=== PATIENT | female | born 1960 | race Asian ===

== ENCOUNTER 2023-01-01 11:25 | Inpatient (IN) | payer OTHER ==
[~2023-01-01] VITALS: Ht 157.5 cm; Wt 66.7 kg
[2023-01-01] MEDS ORDERED: VANCOMYCIN 1 GM in IV D5W 250 ML IV ONE (12:00)
[2023-01-01] MEDS ORDERED: CEFEPIME 1 GM in IV D5W 50 ML IV ONE (12:00)
[2023-01-01 12:02] LABS: BASOPHILS % (AUTO) 0.4 % (0.0-2.0); HEMATOCRIT 34 % (33-45); HEMOGLOBIN 11.1 g/dL (11.5-14.8); LYMPHOCYTES # (AUTO) 0.5 K/uL (0.8-4.8); LYMPHOCYTES % (AUTO) 4.7 % (20.0-44.0); MEAN CORPUSCULAR HGB CONC 33 g/dl (31.0-36.0); MEAN CORPUSCULAR VOLUME 96 fL (82-100); MONOCYTES # (AUTO) 0.4 K/uL (0.1-1.30); MONOCYTES % (AUTO) 4.3 % (2.0-12.0); NEUTROPHILS # (AUTO) 8.9 K/uL (1.8-8.9); NEUTROPHILS % (AUTO) 90.6 % (43.0-81.0); PLATELET COUNT (AUTO) 124 K/uL (150-450); RED BLOOD CELL COUNT(AUTO) 3.57 MIL/uL (4.0-5.2); WHITE BLOOD COUNT (AUTO) 9.8 K/uL (4.3-11.0)
[2023-01-01] MEDS ORDERED: VANCOMYCIN 1 GM /D5W 250 ML PB IV ONE (12:11)
--- NOTE | 2023-01-01 12:17 | NUR ---
PT COMES FROM DIALYSIS CENTER NOT COMPLETED 2/3 HOURS DONE. A/OX 4 BREATHING IS EVEN AND UNLABORED ON 2L NC. C/O: FEVER 103.0 AND CHILLS. DID FEEL LITTLE SICK AND WARM THE NIGHT BEFORE DIALYSIS. ON ARRIVAL PT PRESENTED WITH TACHYCARDIA 125 BPM AND FEVER OF 103.0 F NO ALOC FOUND ON ASSESSMENT. PT CONNECTED TO BEDSIDE MONITOR BP IS WNL. PT PROVEDIED BLANKETS. ABX STARTED. IN BED SIDE RAILS UP BED LOCKED IN LOWEST POSTITION,
[2023-01-01 12:47] LABS: CARBON DIOXIDE 24 mmol/L (21-32); CHLORIDE 98 mmol/L (98-107); CREATININE 4.2 mg/dL (0.6-1.3); GLUCOSE 161 mg/dL (74-106); POTASSIUM 3.3 mmol/L (3.5-5.1); SODIUM SERUM 136 mmol/L (136-145); UREA NITROGEN, BLOOD 19 mg/dL (7-18)
[2023-01-01 12:53] LABS: ALANINE AMINOTRANSFERASE 23 U/L (12-78); ALBUMIN 3.2 g/dL (3.4-5.0); ALKALINE PHOSPHATASE 82 U/L (46-116); ASPARTATE AMINOTRANSFERASE 18 U/L (15-37); BILIRUBIN,DIRECT 0.2 mg/dL (0.0-0.2); BILIRUBIN,TOTAL 0.5 mg/dL (0.2-1.0); TOTAL PROTEIN, SERUM 8.1 g/dL (6.4-8.2)
[2023-01-01] MEDS ORDERED: IV NS 0.9% 1,000 ML IV ONE (13:00)
--- NOTE | 2023-01-01 13:35 | NUR ---
112-1 PER NURSING SUP
[2023-01-01] MEDS ORDERED: ASPI-1420 PO (13:50)
[2023-01-01] MEDS ORDERED: METO-357 PO (13:50)
[2023-01-01] MEDS ORDERED: VIT1TABL46 PO (13:50)
[2023-01-01] MEDS ORDERED: INSU100V7 SQ (13:50)
[2023-01-01] MEDS ORDERED: CHOL100043 PO (13:50)
[2023-01-01] MEDS ORDERED: TRAZ-257 PO (13:50)
[2023-01-01] MEDS ORDERED: ATOR40TA PO (13:50)
[2023-01-01] MEDS ORDERED: NIFE-35 PO (13:50)
[2023-01-01] MEDS ORDERED: MAG HYDROX/AL HYDROX/SIMETH 30 ML UDC PO PRN (14:00)
[2023-01-01] MEDS ORDERED: ACETAMINOPHEN 325 MG TABLET PO ONE (14:00)
[2023-01-01] MEDS ORDERED: hydrALAZINE HCL IV 20 MG VIAL IV PRN (14:00)
[2023-01-01] MEDS ORDERED: ONDANSETRON HCL/PF 4 MG/2 ML VIAL IVP PRN (14:00)
[2023-01-01] MEDS ORDERED: DEXTROSE 50%-WATER 50 ML DISP.SYRIN IV PRN (14:00)
--- NOTE | 2023-01-01 14:21 | NUR ---
HANDOFF REPORT GIVEN TO NIKA BOATENG FOR INPATIENT SERVICES.
[2023-01-01] MEDS ORDERED: VANCOMYCIN POST DIALYSIS 500MG IV PRN ×2 (14:30)
--- NOTE | 2023-01-01 14:35 | NUR ---
PT TRASNFERED WITH ACLS PROTCAL. PT REMAINED STABLE THROUGHT TRANSPORT. PT WAS CONNECTED TO [employer] HELPER THROUGHT TRANSPORT.
--- NOTE | 2023-01-01 14:36 | NUR ---
NS DRIP STARTED AT 1300 END TIME 1400 1 L
--- NOTE | 2023-01-01 14:45 | NUR ---
RN NOTE PATIENT WA ADMITTED FROM THE ER . PATIENT IS ALERT , ORIENTED TIMES 3 , C/O LOW BACK PAIN , NAUSEA AND VOMITING, GENERALIZED WEAKNESS ,PATIENT HAS RU CHEST HD CATH , LEFT FOREARM IV ACCESS 18 G . PATIENT IS ON 2 L OF OXYGEN VIA N/C , BREATHING NONLABORED , O2 SAT 98 %STATED THAT UNABLE TO AMBULATE . SKIN IS INTACT .BED IS AT LOWEST POSITION, CALL LIGHT WITHIN REACH , BED SIDE RAILS ARE UP , WILL CONTINUE TO MONITOR
[2023-01-01 15:18] VITALS: BP 127/78; TEMP 98.8
[2023-01-01] MEDS: CEFEPIME 1 GM in IV D5W 50 ML IV SCH (15:52)
[2023-01-01 16:00] VITALS: BP 125/84; TEMP 98.9
[2023-01-01] MEDS: MORPHINE SULFATE INJ 2 MG/ML DISP.SYRIN IV PRN (16:12)
[2023-01-01] MEDS: BLOOD SUGAR DIAGNOSTIC 1 EACH STRIP VI SCH ×2 (17:25→21:47)
[2023-01-01] MEDS: INSULIN REGULAR, HUMAN 100 UNIT/ML 3 ML VIAL SQ PRN (17:26)
--- NOTE | 2023-01-01 18:39 | NUR ---
TELLER VAULT CLOSING NOTE PATIENT IS ALERT , ORIENTED TIMES 3 , PATIENT HAS RU CHEST HD CATH , LEFT FOREARM IV ACCESS 18 G . PATIENT IS ON 2 L OF OXYGEN VIA N/C , BREATHING NONLABORED , O2 SAT 98 %STATED THAT UNABLE TO AMBULATE . SKIN IS INTACT, REFUSED TO EAT DINNER DUE TO STATING THAT LOST TASTE OF FOOD .BED IS AT LOWEST POSITION, CALL LIGHT WITHIN REACH , BED SIDE RAILS ARE UP , WILL CONTINUE ENDORSE TO TREATING PLANT OPERATOR NURSE.
--- NOTE | 2023-01-01 19:50 | NUR ---
QUANTITATIVE ANALYST DEVELOPER OPENING NOTES RECEIVED PATIENT IN BED, AWAKE, ALERT/ORIENTED X 4 AND VERBALLY RESPONSIVE. ON O2 AT 2L/MIN VIA N/C AND PT TOLERATED WELL. PT HAS RIGHT UPPER CHEST HD CATH AND COVERED WITH DRY DRESSING. IV ACCESS ON LAC#20G INTACT AND PATENT. NO S/S OF INFILTRATIONS. NO C/O PAIN OR DISCOMFORT. NO ACUTE DISTRESS. ALL SAFETY MEASURES IN PLACE. BED IN LOWEST POSITION AND LOCKED. PLACE CALL LIGHT WITHIN REACH. SIDE RAILS ARE UP X2, WILL CONTINUE TO MONITOR.
[2023-01-01 20:00] VITALS: BP 106/51; TEMP 99.2
[2023-01-01] MEDS: HEPARIN SODIUM, PORCINE 5000 UNITS/1 ML VIAL SQ SCH (21:35)
[2023-01-01] MEDS: *INSULIN REGULAR(HUMULIN R)HUM 100 UNIT/ML VIAL SQ PRN (21:49)
--- NOTE | 2023-01-01 22:08 | NUR ---
RN NOTES: PT'S BLOOD SUGAR 162. 3 UNITS OF REGULAR INSULIN GIVEN. NO S/S OF HYPER/HYPOGLYCEMIA. WILL CONTINUE TO MONITOR
[2023-01-02] VITALS (7 sets, daily range): BP systolic 90–127; BP diastolic 52–91; TEMP 98–101.8
[2023-01-02 06:16] LABS: BASOPHILS % (AUTO) 0.2 % (0.0-2.0); EOSINOPHILS % (AUTO) 0.1 % (0.0-6.0); HEMATOCRIT 32 % (33-45); HEMOGLOBIN 10.6 g/dL (11.5-14.8); LYMPHOCYTES # (AUTO) 0.6 K/uL (0.8-4.8); LYMPHOCYTES % (AUTO) 8.3 % (20.0-44.0); MEAN CORPUSCULAR HGB CONC 33 g/dl (31.0-36.0); MEAN CORPUSCULAR VOLUME 94 fL (82-100); MONOCYTES # (AUTO) 0.7 K/uL (0.1-1.30); MONOCYTES % (AUTO) 9.2 % (2.0-12.0); NEUTROPHILS # (AUTO) 6.4 K/uL (1.8-8.9); NEUTROPHILS % (AUTO) 82.2 % (43.0-81.0); PLATELET COUNT (AUTO) 110 K/uL (150-450); RED BLOOD CELL COUNT(AUTO) 3.38 MIL/uL (4.0-5.2); WHITE BLOOD COUNT (AUTO) 7.7 K/uL (4.3-11.0)
[2023-01-02 06:44] LABS: ALBUMIN 2.6 g/dL (3.4-5.0); BILIRUBIN,TOTAL 0.4 mg/dL (0.2-1.0); CALCIUM, SERUM 8.4 mg/dL (8.5-10.1); CREATININE 6.6 mg/dL (0.6-1.3); MAGNESIUM 1.9 mg/dL (1.8-2.4); PHOSPHORUS 3.1 mg/dL (2.5-4.9); POTASSIUM 3.9 mmol/L (3.5-5.1); TOTAL PROTEIN, SERUM 7.1 g/dL (6.4-8.2)
--- NOTE | 2023-01-02 06:45 | NUR ---
HOT CAR CHARGER CLOSING NOTES PATIENT IN BED, STILL SLEEPING BUT EASILY AROUSABLE. ALERT/ORIENTED X 4 AND VERBALLY RESPONSIVE. ON O2 AT 2L/MIN VIA N/C AND PT TOLERATED WELL. O2 SAT 100%. PT HAS RIGHT UPPER CHEST HD CATH AND COVERED WITH DRY DRESSING. IV ACCESS ON LAC#20G INTACT AND PATENT. NO S/S OF INFILTRATIONS. NO C/O PAIN OR DISCOMFORT. NO ACUTE DISTRESS. ALL DUE MEDS GIVEN ORDERED. ALL SAFETY MEASURES IN PLACE. BED IN LOWEST POSITION AND LOCKED. PLACE CALL LIGHT WITHIN REACH. SIDE RAILS ARE UP X2, WILL ENDORSE TO MORNING SHIFT NURSE.
--- NOTE | 2023-01-02 07:00 | NUR ---
E LEARNING MANAGER OPENING NOTES PATIENT IN BED, ALERT/ORIENTED X 4, VERBALLY RESPONSIVE. ON O2 AT 2L/MIN VIA N/C AND TOLERATED WELL WITH NO SOB. O2 SAT 98. PT HAS RIGHT UPPER CHEST HD CATH AND COVERED WITH DRY DRESSING. IV ACCESS ON LAC#20G INTACT AND PATENT. NO S/S OF INFILTRATIONS. ALL SAFETY MEASURES AN PRECAUTIONS IN PLACE. BED IN LOWEST AND LOCKED POSITION. PLACE CALL LIGHT AND TABLE WITHIN REACH. SIDE RAILS ARE UP X2, WILL CONTINUE TO MONITOR.
[2023-01-02] MEDS: MORPHINE SULFATE INJ 2 MG/ML DISP.SYRIN IV PRN (07:42)
[2023-01-02] MEDS: BLOOD SUGAR DIAGNOSTIC 1 EACH STRIP VI SCH ×4 (07:42→22:31)
[2023-01-02] MEDS: INSULIN REGULAR, HUMAN 100 UNIT/ML 3 ML VIAL SQ PRN ×2 (07:43→17:31)
[2023-01-02] MEDS: ASPIRIN EC 81 MG TABLET.DR PO SCH (08:30)
[2023-01-02] MEDS: ATORVASTATIN 40 MG TABLET PO SCH (08:30)
[2023-01-02] MEDS: VIT B CMPLX 3/FA/VIT C/BIOTIN 1 TAB TABLET PO SCH (08:30)
[2023-01-02] MEDS: NIFEdipine XL (30MG) 30 MG TAB PO SCH (08:30)
[2023-01-02] MEDS: HEPARIN SODIUM, PORCINE 5000 UNITS/1 ML VIAL SQ SCH (08:36)
[2023-01-02] MEDS ORDERED: METOPROLOL SUCCINATE 50 MG TAB.SR.24H PO SCH (09:00)
[2023-01-02] MEDS: ACETAMINOPHEN 325 MG TABLET PO PRN (12:06)
--- NOTE | 2023-01-02 13:50 | NUR ---
RN NOTE PATIENT NOTED WITH GENERALIZED WEAKNESS, FACIAL TWITCHING RAPID RESPONSE CALLED. VITALS SIGNS 119/66 HR 139, TEMP 103.1 02 SAT 100% SUGAR 116. DOCTOR MIL WAS CALLED AND RECEIVED ORDER FOR CT SCAN OF THE HEAD WITHOUT CONTRAST. AWAITING RESULTS FROM CT SCAN. WILL CONTINUE TO MONITOR PATIENT.
[2023-01-02] MEDS: CEFEPIME 1 GM in IV D5W 50 ML IV SCH (15:26)
[2023-01-02] MEDS ORDERED: LORAZEPAM INJ 2 MG/ML VIAL IV PRN (18:30)
--- NOTE | 2023-01-02 19:40 | NUR ---
SET UP PERSON OPENING NOTE RECEIVED PATIENT IN BED, AWAKE. PT ALERT/ORIENTED X 4, VERBALLY RESPONSIVE. ON O2 AT 2L/MIN VIA N/C AND TOLERATED WELL, WITH 02 SAT 100%. NO SOB, NO RESPIRATORY DISTRESS. PT HAS RIGHT UPPER CHEST HD CATH. IV ACCESS ON LEFT AC #20G, IV INTACT AND PATENT. NO S/S OF INFILTRATIONS NOTED. ALL SAFETY MEASURES IN PLACE. BED IN LOWEST AND LOCKED POSITION. CALL LIGHT AND TABLE WITHIN REACH. SIDE RAILS ARE UP X2. WILL CONTINUE TO MONITOR.
--- NOTE | 2023-01-02 19:43 | NUR ---
TYPER CLOSING NOTES PATIENT IN BED, ALERT/ORIENTED X 4, VERBALLY RESPONSIVE. ON O2 AT 2L/MIN VIA N/C AND TOLERATED WELL WITH NO SOB. O2 SAT 96. PT HAS RIGHT UPPER CHEST HD CATH AND COVERED WITH DRY DRESSING. IV ACCESS ON LAC#20G INTACT AND PATENT. NO S/S OF INFILTRATIONS. PATIENT HAS BEEN HAVING HIGH HR, DOCTOR GERMAIN AWARE. ALL MEDICATIONS GIVEN PER MD ORDER. ALL SAFETY MEASURES AN PRECAUTIONS IN PLACE. BED IN LOWEST AND LOCKED POSITION. PLACE CALL LIGHT AND TABLE WITHIN REACH. SIDE RAILS ARE UP X2, REPORT GIVEN TO PROVIDER SERVICE REPRESENTATIVE NURSE FOR CONTINUING OF CARE.
--- NOTE | 2023-01-02 21:00 | NUR ---
SWEATBAND MAKER NOTE PT'S BP: 90/52. MADE AWARE.
[2023-01-02] MEDS ORDERED: HEPARIN INFUSION/D5W 500 ML IV PRN (21:30)
[2023-01-02] MEDS: METOPROLOL SUCCINATE 50 MG TAB.SR.24H PO SCH (21:30)
[2023-01-02 21:40] LABS: THYROID STIMULATING HORMONE 1.471 uIU/mL (0.358-3.74)
[2023-01-02] MEDS: *INSULIN REGULAR(HUMULIN R)HUM 100 UNIT/ML VIAL SQ PRN (22:39)
[2023-01-03] VITALS: BP 95/53; TEMP 98.3
[2023-01-03 04:00] VITALS: BP 96/52; TEMP 98.3
[2023-01-03 05:52] LABS: BASOPHILS % (AUTO) 0.1 % (0.0-2.0); EOSINOPHILS % (AUTO) 0.1 % (0.0-6.0); HEMATOCRIT 32 % (33-45); HEMOGLOBIN 10.3 g/dL (11.5-14.8); LYMPHOCYTES # (AUTO) 1.3 K/uL (0.8-4.8); LYMPHOCYTES % (AUTO) 10.9 % (20.0-44.0); MEAN CORPUSCULAR HGB CONC 33 g/dl (31.0-36.0); MEAN CORPUSCULAR VOLUME 96 fL (82-100); MONOCYTES # (AUTO) 1.2 K/uL (0.1-1.30); MONOCYTES % (AUTO) 10.1 % (2.0-12.0); NEUTROPHILS # (AUTO) 9.8 K/uL (1.8-8.9); NEUTROPHILS % (AUTO) 78.8 % (43.0-81.0); PLATELET COUNT (AUTO) 85 K/uL (150-450); RED BLOOD CELL COUNT(AUTO) 3.32 MIL/uL (4.0-5.2); WHITE BLOOD COUNT (AUTO) 12.4 K/uL (4.3-11.0)
[2023-01-03 06:03] LABS: ALBUMIN 2.4 g/dL (3.4-5.0); BILIRUBIN,TOTAL 0.4 mg/dL (0.2-1.0); CALCIUM, SERUM 8.3 mg/dL (8.5-10.1); MAGNESIUM 2.3 mg/dL (1.8-2.4); PHOSPHORUS 4.7 mg/dL (2.5-4.9); POTASSIUM 4.1 mmol/L (3.5-5.1)
--- NOTE | 2023-01-03 06:30 | NUR ---
BUILDING DRAFTING OFFICER CLOSING NOTE LEFT PATIENT IN BED, SLEEPING. PT ALERT/ORIENTED X 4, VERBALLY RESPONSIVE. ON O2 AT 2L/MIN VIA N/C AND TOLERATED WELL. NO SOB, NO RESPIRATORY DISTRESS. PT HAS RIGHT UPPER CHEST HD CATH. IV ACCESS ON LEFT AC #20G, IV INTACT AND PATENT. NO S/S OF INFILTRATIONS NOTED. LAB CALLED REGARDING PT'S TROPONIN LEVEL: 176. ALL SAFETY MEASURES IN PLACE. BED IN LOWEST AND LOCKED POSITION. CALL LIGHT AND TABLE WITHIN REACH. SIDE RAILS ARE UP X2. WILL ENDORSE PT TO MORNING SHIFT NURSE FOR EPHRAIM.
[2023-01-03] MEDS: BLOOD SUGAR DIAGNOSTIC 1 EACH STRIP VI SCH ×4 (07:51→21:22)
[2023-01-03 07:56] LABS: BAND % (MANUAL) 4 % (0.0-5.0); BASOPHILS % (MANUAL) 0 % (0.0-2.0); EOSINOPHILS % (MANUAL) 0 % (0-4); LYMPHOCYTES % (MANUAL) 10 % (16-48); MONOCYTES % (MANUAL) 8 % (0-11.0); NEUTROPHILS % (MANUAL) 78 (42-76)
--- NOTE | 2023-01-03 07:57 | NUR ---
SUPPLY CHAIN ASSOCIATE OPENING NOTE RECEIVED PATIENT IN BED, ALERT/ORIENTED X 4, VERBALLY RESPONSIVE. ON O2 AT 2L/MIN VIA N/C AND TOLERATED WELL. NO PAIN OR DISCOMFORT NOTED AT THIS TIME. PT HAS RIGHT UPPER CHEST HD CATH. IV ACCESS ON LEFT AC #20G, IV INTACT AND PATENT. .ALL SAFETY MEASURES IN PLACE. BED IN LOWEST AND LOCKED POSITION. CALL LIGHT AND TABLE WITHIN REACH. SIDE RAILS ARE UP X2. BED ALARM ON
[2023-01-03 08:00] VITALS: BP 104/54; TEMP 98.2
[2023-01-03] MEDS: VIT B CMPLX 3/FA/VIT C/BIOTIN 1 TAB TABLET PO SCH (08:22)
[2023-01-03] MEDS: ASPIRIN EC 81 MG TABLET.DR PO SCH (08:22)
[2023-01-03] MEDS: ATORVASTATIN 40 MG TABLET PO SCH (08:23)
[2023-01-03] MEDS: INSULIN REGULAR, HUMAN 100 UNIT/ML 3 ML VIAL SQ PRN ×2 (08:26→18:22)
[2023-01-03] MEDS: METOPROLOL SUCCINATE 50 MG TAB.SR.24H PO SCH ×2 (09:00→21:00)
[2023-01-03] MEDS: NIFEdipine XL (30MG) 30 MG TAB PO SCH (09:00)
--- NOTE | 2023-01-03 10:07 | NUR ---
RN NOTE BP MEDICATION ON HOLD AT THIS TIME DUE TO PT GOING FOR [facility] AND POSSIBLE DIAYLSIS LATER TODAY
--- NOTE | 2023-01-03 11:40 | NUR ---
rn note pt left for [facility]
[2023-01-03] MEDS ORDERED: IV NS 0.9% 250 ML IV ONE (11:49)
[2023-01-03] MEDS ORDERED: CT SWABBABLE VALVE TRANS SET 1 EA INFUS.SET MC ONE (11:49)
[2023-01-03] MEDS ORDERED: IOHEXOL-350 100 ML VIAL IV ONE (11:49)
[2023-01-03] MEDS ORDERED: NITROGLYCERIN 0.4 MG/TAB BOTTLE ONE (11:49)
--- NOTE | 2023-01-03 12:46 | NUR ---
RN NOTE PT BACK FROM [facility]. CURRENTLY GETTING DIALYSIS
[2023-01-03] MEDS: CEFEPIME 1 GM in IV D5W 50 ML IV SCH (15:39)
[2023-01-03 16:00] VITALS: BP_SYST 101; BP_SYST 102; BP_SYST 88; BP_DIAS 52; BP_DIAS 54; BP_DIAS 63; TEMP 98.1
[2023-01-03] MEDS ORDERED: IV NS 0.9% 500 ML IV ONE (16:30)
--- NOTE | 2023-01-03 17:04 | NUR ---
rn note 1200 vital signs due to pt being at [facility]
--- NOTE | 2023-01-03 18:27 | NUR ---
rn note notified dr. cesar yusuf that bp 88/52. ordered 500 normal saline bolus stat. after bolus was given current bp 101/54 Addendum: 01/03/23 at 1829 by DALLAS JUAREZ RN dr. cesar thompson
--- NOTE | 2023-01-03 19:30 | NUR ---
RN NOTE RECEIVED PT FOR CONTINUITY OF CARE. PATIENT A/OX4 IN NO S/SX OF ACUTE DISTRESS AT THIS TIME; CURRENTLY ON 2L OF 02 VIA NC; WITH 02 SAT >95% AT THIS TIME.WITH IV ACCESS PATENT, INTACT AND FLUSHING WELL. WILL ENSURE SAFETY MEASURES WITHIN THE SHIFT. PATIENT BED ALARM IS ON. HEAD OF BED ELEVATED. BED IS LOCKED, IN LOWEST POSITION AND SIDE RAILS UP. CALL LIGHT WITHIN REACH OF THE PATIENT. WILL CONTINUE TO MONITOR AND REASSESS FOR ANY CHANGES AND WILL CARRY OUT ANY ONGOING AND ACTIVE MD ORDER.
--- NOTE | 2023-01-03 19:49 | NUR ---
OBSTETRICS TEACHER CLOSING NOTE PATIENT IN BED, ALERT/ORIENTED X 4, VERBALLY RESPONSIVE. ON O2 AT 2L/MIN VIA N/C AND TOLERATED WELL. NO PAIN OR DISCOMFORT NOTED AT THIS TIME. PT HAS RIGHT UPPER CHEST HD CATH. DRESSING CLEAN AND DRY. IV ACCESS ON LEFT AC #20G, IV INTACT AND PATENT.PT HAS RAC 18 GUAGE, IV PATENT AND INTACT. DIALYSIS WAS COMPLETED EARLIER IN SHIFT. DIALYSIS NURSE REMOVED 1 L. ALL SAFETY MEASURES IN PLACE. BED IN LOWEST AND LOCKED POSITION. CALL LIGHT AND TABLE WITHIN REACH. SIDE RAILS ARE UP X2. BED ALARM ON.ENDORSED TO CLERK ANALYST RN FOR CONTUITY OF CARE
[2023-01-03 20:00] VITALS: BP 102/51; TEMP 98
[2023-01-03] MEDS: *INSULIN REGULAR(HUMULIN R)HUM 100 UNIT/ML VIAL SQ PRN (21:23)
[2023-01-04] VITALS (7 sets, daily range): BP systolic 99–137; BP diastolic 51–79; TEMP 98–102
[2023-01-04 06:37] LABS: CALCIUM, SERUM 8.2 mg/dL (8.5-10.1); CREATININE 5.7 mg/dL (0.6-1.3); POTASSIUM 3.6 mmol/L (3.5-5.1)
--- NOTE | 2023-01-04 06:40 | NUR ---
RN NOTE PATIENT REMAINS IN ROOM IN NO SIGNS OF RESPIRATORY DISTRESS, PATIENT STILL ON 2L OF 02 VIA NC;TOLERATING WELL SATURATING @ >95% SP02. SAFETY MEASURES IMPLEMENTED, BED IN LOWEST POSITION, LOCKED, SIDE RAILS UP, CALL LIGHT WITHIN REACH. ALL NEEDS AND ORDERS ADDRESSED DURING THE SHIFT. IV ACCESS MAINTAINED INTACT, SECURED AND FLUSHING WELL. ALL DUE MEDS GIVEN ORDERED & SCHEDULED ; PATIENT TOLERATED WELL. PATIENT KEPT CLEAN AND COMFORTABLE WITHIN THE SHIFT. PLAN: HD TODAY AND LABS. PATIENT ENDORSED TO INCOMING SHIFT RN WITH STABLE VITAL SIGN AND FOR CONTINUITY OF CARE.
--- NOTE | 2023-01-04 07:23 | NUR ---
RN OPENING NOTE PATIENT RECEIVED IN BED ASLEEP. ON 2L OF O2 VIA NC WITH NO SIGNS OF RESPIRATORY DISTRESS. ON TELE MONITOR. IV ACCESS AT LAC 20G AND RAC 18G, PATENT AND INTACT. SAFETY MEASURES IMPLEMENTED WITH BED IN LOWEST LOCKED POSITION, SIDE RAILS UP X 2, AND CALL LIGHT WITHIN REACH. WILL CONTINUE TO MONITOR.
[2023-01-04] MEDS: BLOOD SUGAR DIAGNOSTIC 1 EACH STRIP VI SCH ×4 (08:02→21:34)
[2023-01-04] MEDS: *INSULIN REGULAR(HUMULIN R)HUM 100 UNIT/ML VIAL SQ PRN ×4 (08:04→21:35)
[2023-01-04] MEDS: METOPROLOL SUCCINATE 50 MG TAB.SR.24H PO SCH ×2 (08:21→21:00)
[2023-01-04] MEDS: ATORVASTATIN 40 MG TABLET PO SCH (08:21)
[2023-01-04] MEDS: ASPIRIN EC 81 MG TABLET.DR PO SCH (08:21)
[2023-01-04] MEDS: VIT B CMPLX 3/FA/VIT C/BIOTIN 1 TAB TABLET PO SCH (08:21)
[2023-01-04] MEDS: NIFEdipine XL (30MG) 30 MG TAB PO SCH (08:22)
[2023-01-04] MEDS: ACETAMINOPHEN 325 MG TABLET PO PRN ×2 (08:24→21:15)
[2023-01-04 09:58] LABS: BASOPHILS % (AUTO) 0.6 % (0.0-2.0); EOSINOPHILS % (AUTO) 1.1 % (0.0-6.0); HEMATOCRIT 33 % (33-45); HEMOGLOBIN 10.9 g/dL (11.5-14.8); LYMPHOCYTES # (AUTO) 0.4 K/uL (0.8-4.8); LYMPHOCYTES % (AUTO) 4.4 % (20.0-44.0); MEAN CORPUSCULAR HGB CONC 33 g/dl (31.0-36.0); MEAN CORPUSCULAR VOLUME 93 fL (82-100); MONOCYTES # (AUTO) 0.4 K/uL (0.1-1.30); MONOCYTES % (AUTO) 4.9 % (2.0-12.0); NEUTROPHILS # (AUTO) 7.5 K/uL (1.8-8.9); PLATELET COUNT (AUTO) 93 K/uL (150-450); RED BLOOD CELL COUNT(AUTO) 3.55 MIL/uL (4.0-5.2); WHITE BLOOD COUNT (AUTO) 8.4 K/uL (4.3-11.0)
[2023-01-04 10:31] LABS: ALBUMIN 2.5 g/dL (3.4-5.0); BILIRUBIN,DIRECT 0.2 mg/dL (0.0-0.2); BILIRUBIN,TOTAL 0.5 mg/dL (0.2-1.0); TOTAL PROTEIN, SERUM 7.3 g/dL (6.4-8.2)
[2023-01-04 11:47] LABS: BASOPHILS % (MANUAL) 0 % (0.0-2.0); EOSINOPHILS % (MANUAL) 3 % (0-4); LYMPHOCYTES % (MANUAL) 7 % (16-48); MONOCYTES % (MANUAL) 6 % (0-11.0); NEUTROPHILS % (MANUAL) 84 (42-76)
[2023-01-04] MEDS: CEFEPIME 1 GM in IV D5W 50 ML IV SCH (14:07)
[2023-01-04] MEDS ORDERED: ALBUMIN 25% 25 GM in PREMIX 1 EA IV STA (14:23)
--- NOTE | 2023-01-04 16:41 | NUR ---
ALBUMIN NOT ADMINISTERED DURING HD BP WENT BACK UP.
--- NOTE | 2023-01-04 16:47 | NUR ---
HEMODIALYSIS COMPLETED. REMOVED 1L.
[2023-01-04] MEDS: MEROPENEM 500 MG in IV NS 0.9% 50 ML IV SCH (17:26)
--- NOTE | 2023-01-04 18:49 | NUR ---
RN OPENING NOTE PATIENT IN BED AWAKE AND WATCHING TV. ALERT AND ORIENTED X2. N 2L OF O2 VIA NC WITH NO SIGNS OF RESPIRATORY DISTRESS. ON TELE MONITOR READING SR 63. IV ACCESS AT LAC 20G AND RAC 18G, PATENT AND INTACT. HEMODIALYSIS COMPLETED AND REMOVED 1L. ALL DUE MEDS GIVEN AND PATIENT KEPT CLEAN AND COMFORTABLE. SAFETY MEASURES IMPLEMENTED WITH BED IN LOWEST LOCKED POSITION, SIDE RAILS UP X 2, AND CALL LIGHT AND TABLE WITHIN REACH. WILL ENDORSE TO ONCOMING SHIFT FOR EPHRAIM. Addendum: 01/04/23 at 1851 by TONIO BARLOW RN PATIENT IS ALERT AND ORIENTED X4, NOT 2. Addendum: 01/04/23 at 1851 by TONIO BARLOW RN CLOSING NOTE, NOT OPENING
[2023-01-05] VITALS: BP 101/83; TEMP 98.6
[2023-01-05 04:00] VITALS: BP 100/79; TEMP 98.9
[2023-01-05 05:54] LABS: BASOPHILS % (AUTO) 0.3 % (0.0-2.0); EOSINOPHILS % (AUTO) 1.5 % (0.0-6.0); HEMATOCRIT 33 % (33-45); HEMOGLOBIN 10.7 g/dL (11.5-14.8); LYMPHOCYTES # (AUTO) 0.8 K/uL (0.8-4.8); LYMPHOCYTES % (AUTO) 11.1 % (20.0-44.0); MEAN CORPUSCULAR HGB CONC 32 g/dl (31.0-36.0); MEAN CORPUSCULAR VOLUME 95 fL (82-100); MONOCYTES # (AUTO) 1.1 K/uL (0.1-1.30); MONOCYTES % (AUTO) 14.1 % (2.0-12.0); NEUTROPHILS # (AUTO) 5.5 K/uL (1.8-8.9); PLATELET COUNT (AUTO) 89 K/uL (150-450); RED BLOOD CELL COUNT(AUTO) 3.51 MIL/uL (4.0-5.2); WHITE BLOOD COUNT (AUTO) 7.6 K/uL (4.3-11.0)
[2023-01-05 06:08] LABS: CALCIUM, SERUM 8.9 mg/dL (8.5-10.1); CREATININE 4.9 mg/dL (0.6-1.3); POTASSIUM 3.7 mmol/L (3.5-5.1)
[2023-01-05 06:12] LABS: ALBUMIN 2.4 g/dL (3.4-5.0); BILIRUBIN,TOTAL 0.4 mg/dL (0.2-1.0); TOTAL PROTEIN, SERUM 7.3 g/dL (6.4-8.2)
--- NOTE | 2023-01-05 06:32 | NUR ---
RN NOTE PATIENT REMAINS IN ROOM IN NO SIGNS OF RESPIRATORY DISTRESS, PATIENT STILL ON 2L OF 02 VIA NC;TOLERATING WELL SATURATING @ >95% SP02. SAFETY MEASURES IMPLEMENTED, BED IN LOWEST POSITION, LOCKED, SIDE RAILS UP, CALL LIGHT WITHIN REACH. ALL NEEDS AND ORDERS ADDRESSED DURING THE SHIFT. IV ACCESS MAINTAINED INTACT, SECURED AND FLUSHING WELL. ALL DUE MEDS GIVEN ORDERED & SCHEDULED ; PATIENT TOLERATED WELL. PATIENT KEPT CLEAN AND COMFORTABLE WITHIN THE SHIFT. PATIENT ENDORSED TO INCOMING SHIFT RN WITH STABLE VITAL SIGN AND FOR CONTINUITY OF CARE
--- NOTE | 2023-01-05 07:00 | NUR ---
EQUIPMENT VALIDATION SPECIALIST OPENING NOTE PATIENT AWAKE,ALERT AND ORIENTED X3. PATIENT 02 SAT IN 2L N/C 99%. PATIENT DENIES SOB AND DENIES PAIN AT PRESENT. IV ACCESS TO LEFT AC #20 INTACT, LEFT AC #18 INTACT. RIGHT CHEST DIALYSIS CATHETER IN PLACE, DRESSING D/C/I. SAFETY MEASURES IN PLACE, BED LOCKED TO THE LOWEST POSITION, CALL LIGHT, TABLE WITHIN REACH. CONT. TO MONITOR.
--- NOTE | 2023-01-05 07:14 | NUR ---
RN TRANSFER OPENING NOTE PATIENT RECEIVED IN BED. ON 2L OF VIA NC;TOLERATING WELL WITH NO SIGNS OF SOB OR RESPIRATORY DISTRESS. IV ACCESS ON LAC 20G AND RAC 18G, INTACT AND PATENT. SAFETY MEASURES IMPLEMENTED, BED IN LOWEST LOCKED POSITION, SIDE RAILS UP X3, CALL LIGHT AND TABLE WITHIN REACH. WILL CONTINUE TO MONITOR.
[2023-01-05 08:00] VITALS: BP 118/64; TEMP 97.9
[2023-01-05] MEDS: BLOOD SUGAR DIAGNOSTIC 1 EACH STRIP VI SCH ×4 (08:15→21:40)
[2023-01-05] MEDS: INSULIN REGULAR, HUMAN 100 UNIT/ML 3 ML VIAL SQ PRN ×3 (08:32→18:12)
[2023-01-05] MEDS: ASPIRIN EC 81 MG TABLET.DR PO SCH (08:54)
[2023-01-05] MEDS: VIT B CMPLX 3/FA/VIT C/BIOTIN 1 TAB TABLET PO SCH (08:54)
[2023-01-05] MEDS: ATORVASTATIN 40 MG TABLET PO SCH (08:59)
[2023-01-05] MEDS: METOPROLOL SUCCINATE 50 MG TAB.SR.24H PO SCH ×2 (09:00→21:31)
[2023-01-05] MEDS: NIFEdipine XL (30MG) 30 MG TAB PO SCH (09:00)
--- NOTE | 2023-01-05 09:00 | NUR ---
TILTING HEAD BAND SAWYER NOTE BLOOD PRESSURE MEDICATIONS NOT ADMINISTERED, BECAUSE PATIENT IS SCHEDULED TO HAVE DIALYSIS TODAY.
[2023-01-05 12:00] VITALS: BP 118/64; TEMP 97.9
[2023-01-05 13:39] LABS: LYMPHOCYTES % (MANUAL) 13 % (16-48); NEUTROPHILS % (MANUAL) 70 (42-76)
[2023-01-05 13:40] LABS: BASOPHILS % (MANUAL) 0 % (0.0-2.0); EOSINOPHILS % (MANUAL) 2 % (0-4); MONOCYTES % (MANUAL) 15 % (0-11.0)
--- NOTE | 2023-01-05 14:09 | NUR ---
Dr Caldwell updated on pt condition and recent lab results BUN 19. pt denies any SOB. Hold HD treatment today per Dr Caldwell.
[2023-01-05 16:00] VITALS: BP 118/64; TEMP 98.2
[2023-01-05] MEDS: MEROPENEM 500 MG in IV NS 0.9% 50 ML IV SCH (17:44)
--- NOTE | 2023-01-05 19:00 | NUR ---
NAILING MACHINE FEEDER CLOSING NOTE PATIENT RESTING IN BED A/A/0XE, 02 2L N/C 02 SAT 97%, NO S/S/ OF RESPIRATORY DISTRESS NOTED. HOB ELEVATED, IV ACCESS TO LEFT AC AND RAC INTACT. PATIENT DENIES PAIN. RIGHT CHEST DIALYSIS CATHETER IN PLACE. SAFETY MEASURES IN PLACE, BED LOCKED TO THE LOWEST POSITION, TABLE AND CALL LIGHT WITHIN REACH. SIDE RAILS UP X3. I WILL ENDORSE TO THE FOLLOWING NURSE. PATIENT DID NOT HAVE BLOOD PRESSURE MEDS THIS AM DUE TO LOW BLOOD PRESSURE. PATIENT WILL HAVE DIALYSIS TOMORROW.
[2023-01-05 20:00] VITALS: BP 125/70; TEMP 98
[2023-01-05] MEDS: *INSULIN REGULAR(HUMULIN R)HUM 100 UNIT/ML VIAL SQ PRN (21:45)
[2023-01-06] VITALS: BP 120/68; TEMP 97.6
[2023-01-06 01:33] LABS: CALCIUM, SERUM 8.6 mg/dL (8.5-10.1); CREATININE 6.2 mg/dL (0.6-1.3); POTASSIUM 3.8 mmol/L (3.5-5.1)
[2023-01-06 01:34] LABS: BASOPHILS % (AUTO) 0.5 % (0.0-2.0); EOSINOPHILS % (AUTO) 2.1 % (0.0-6.0); HEMATOCRIT 31 % (33-45); HEMOGLOBIN 10.2 g/dL (11.5-14.8); LYMPHOCYTES # (AUTO) 1.1 K/uL (0.8-4.8); LYMPHOCYTES % (AUTO) 15.9 % (20.0-44.0); MEAN CORPUSCULAR HGB CONC 33 g/dl (31.0-36.0); MEAN CORPUSCULAR VOLUME 95 fL (82-100); MONOCYTES # (AUTO) 1.2 K/uL (0.1-1.30); MONOCYTES % (AUTO) 17.1 % (2.0-12.0); NEUTROPHILS # (AUTO) 4.5 K/uL (1.8-8.9); NEUTROPHILS % (AUTO) 64.4 % (43.0-81.0); PLATELET COUNT (AUTO) 101 K/uL (150-450); RED BLOOD CELL COUNT(AUTO) 3.31 MIL/uL (4.0-5.2)
[2023-01-06 01:53] LABS: ALBUMIN 2.3 g/dL (3.4-5.0); BILIRUBIN,TOTAL 0.3 mg/dL (0.2-1.0); TOTAL PROTEIN, SERUM 6.9 g/dL (6.4-8.2)
[2023-01-06 04:00] VITALS: BP 139/65; TEMP 97.9
[2023-01-06 05:30] LABS: BASOPHILS % (MANUAL) 0 % (0.0-2.0); EOSINOPHILS % (MANUAL) 3 % (0-4); LYMPHOCYTES % (MANUAL) 14 % (16-48); MONOCYTES % (MANUAL) 15 % (0-11.0); NEUTROPHILS % (MANUAL) 68 (42-76)
[2023-01-06] MEDS: ACETAMINOPHEN 325 MG TABLET PO PRN (06:34)
[2023-01-06 06:53] LABS: CALCIUM, SERUM 8.9 mg/dL (8.5-10.1); CREATININE 6.8 mg/dL (0.6-1.3); POTASSIUM 4.1 mmol/L (3.5-5.1)
--- NOTE | 2023-01-06 07:15 | NUR ---
PAINTING TECHNICIAN OPENING NOTES Received pt asleep in bed AOX4. No complaints of pain or discomfort at this time. Pt is on 2L NC and tolerating it well. IV access on RAC and LAC 20G patent and intact. Pt has a RUC PermCath for HD that will be done shortly. HOB elevated to pts comfort. Call light within reach. Will continue to monitor.
[2023-01-06 08:00] VITALS: BP 130/62; TEMP 97.9
[2023-01-06] MEDS: BLOOD SUGAR DIAGNOSTIC 1 EACH STRIP VI SCH ×4 (08:17→21:59)
[2023-01-06] MEDS: INSULIN REGULAR, HUMAN 100 UNIT/ML 3 ML VIAL SQ PRN (08:18)
[2023-01-06] MEDS: NIFEdipine XL (30MG) 30 MG TAB PO SCH (09:00)
[2023-01-06] MEDS: METOPROLOL SUCCINATE 50 MG TAB.SR.24H PO SCH ×2 (09:00→21:59)
[2023-01-06] MEDS: ASPIRIN EC 81 MG TABLET.DR PO SCH (10:07)
[2023-01-06] MEDS: VIT B CMPLX 3/FA/VIT C/BIOTIN 1 TAB TABLET PO SCH (10:08)
[2023-01-06] MEDS: ATORVASTATIN 40 MG TABLET PO SCH (10:08)
--- NOTE | 2023-01-06 10:10 | NUR ---
IMMIGRATION PARALEGAL NOTES Procardia and Metoprolol held d/t pt receiving dialysis.
[2023-01-06] MEDS: *INSULIN REGULAR(HUMULIN R)HUM 100 UNIT/ML VIAL SQ PRN ×3 (11:13→22:02)
[2023-01-06 12:00] VITALS: BP 146/74; TEMP 97.7
[2023-01-06] MEDS: CEFTRIAXONE 2 G in IV D5W 100 ML IV SCH (12:25)
[2023-01-06 16:00] VITALS: BP 140/79; TEMP 98.2
--- NOTE | 2023-01-06 18:34 | NUR ---
R AND D LAB TECHNICIAN NOTES All due meds and tx given as ordered. Pt tolerated everything well. All needs attended to. Jaron light within reach. Will endorse to oncoming nurse.
--- NOTE | 2023-01-06 19:20 | NUR ---
RN NOTE Received pt in bed, alert, awake and verbally responsive, oriented x4. Denies pain or discomfort at this time. On room air, well nuha, no sob, nad. Afebrile. PIV access on LAC and RAC #20G on SL, patent, flushes well. RUC Permcath HD access covered with DD, no active bleeding noted, dressing CDI. HOB elevated for comfort. Call light within easy reach. Safety precaution implemented at all times. Will continue plan of care.
[2023-01-06 20:00] VITALS: BP 136/64; TEMP 98.1
[2023-01-07 04:00] VITALS: BP 136/71; TEMP 97.9
--- NOTE | 2023-01-07 06:53 | NUR ---
RN NOTE Pt remains in stable condition. VSS. No significant changes noted throughout the shift. All due medications given as ordered, no ASE noted. LAC and RAC #20G remains on SL, patent, flushing well. All needs attended. Will endorse to incoming shift nurse for continuity of care.
--- NOTE | 2023-01-07 07:14 | NUR ---
STOCK CLIPPER OPENING NOTES Received pt awake in bed AOX4. No complaints of pain or discomfort at this time. Pt is on 2L NC and tolerating it well. IV access on RAC and LAC 20G patent and intact. Pt has a RUC PermCath for HD. HOB elevated to pts comfort. Call light within reach. Will continue to monitor.
[2023-01-07 07:20] LABS: BASOPHILS % (AUTO) 0.5 % (0.0-2.0); EOSINOPHILS % (AUTO) 2.7 % (0.0-6.0); HEMATOCRIT 34 % (33-45); HEMOGLOBIN 11.1 g/dL (11.5-14.8); LYMPHOCYTES # (AUTO) 1.2 K/uL (0.8-4.8); LYMPHOCYTES % (AUTO) 18.1 % (20.0-44.0); MEAN CORPUSCULAR HGB CONC 33 g/dl (31.0-36.0); MEAN CORPUSCULAR VOLUME 95 fL (82-100); MONOCYTES # (AUTO) 1.1 K/uL (0.1-1.30); MONOCYTES % (AUTO) 15.8 % (2.0-12.0); NEUTROPHILS # (AUTO) 4.2 K/uL (1.8-8.9); NEUTROPHILS % (AUTO) 62.9 % (43.0-81.0); PLATELET COUNT (AUTO) 138 K/uL (150-450); WHITE BLOOD COUNT (AUTO) 6.7 K/uL (4.3-11.0)
[2023-01-07 07:43] LABS: CALCIUM, SERUM 8.8 mg/dL (8.5-10.1); CREATININE 5.9 mg/dL (0.6-1.3); POTASSIUM 4.1 mmol/L (3.5-5.1)
[2023-01-07 07:49] LABS: ALBUMIN 2.4 g/dL (3.4-5.0); BILIRUBIN,TOTAL 0.3 mg/dL (0.2-1.0); TOTAL PROTEIN, SERUM 7.3 g/dL (6.4-8.2)
[2023-01-07] MEDS: BLOOD SUGAR DIAGNOSTIC 1 EACH STRIP VI SCH ×4 (08:14→21:08)
[2023-01-07] MEDS: INSULIN REGULAR, HUMAN 100 UNIT/ML 3 ML VIAL SQ PRN ×3 (08:15→17:41)
--- NOTE | 2023-01-07 08:45 | NUR ---
RN NOTES PT RECEIVING HD , MORINING MEDS HELD PER ORDER AT THIS TIME.
--- NOTE | 2023-01-07 08:45 | NUR ---
RN NOTES RECEIVED PT FROM ARCELIA LONG FOR CONTINUITY OF CARE
[2023-01-07] MEDS: ASPIRIN EC 81 MG TABLET.DR PO SCH (09:36)
[2023-01-07] MEDS: ATORVASTATIN 40 MG TABLET PO SCH (09:37)
[2023-01-07] MEDS: VIT B CMPLX 3/FA/VIT C/BIOTIN 1 TAB TABLET PO SCH (09:37)
[2023-01-07] MEDS: NIFEdipine XL (30MG) 30 MG TAB PO SCH (10:40)
[2023-01-07] MEDS: METOPROLOL SUCCINATE 50 MG TAB.SR.24H PO SCH ×2 (10:40→20:48)
[2023-01-07] MEDS: CEFTRIAXONE 2 G in IV D5W 100 ML IV SCH (11:24)
--- NOTE | 2023-01-07 11:45 | NUR ---
RN NOTES PT UP TO BATHROOM , STATED FEELS WEAK , DR=405/68 HR 58 . O2 SAT 100 . PT BACK TO BED , STATED FEELS BETTER , ARCELIA IT SALES REPRESENTATIVE NOTIFIED , CONTINUE TO MONITOR .
[2023-01-07 12:00] VITALS: BP 155/68; TEMP 98.4
--- NOTE | 2023-01-07 12:20 | NUR ---
RN NOTES PT STATED FEELS BETTER AND NO DISTESS NOTED .
[2023-01-07] MEDS ORDERED: METO50TA7 PO (12:45)
[2023-01-07] MEDS ORDERED: CEFT2VIA14 IV (12:45)
--- NOTE | 2023-01-07 18:21 | NUR ---
RN NOTES PT DENIES ANY DISTESS , AWAITING FOR MIDLINE PLACEMENT FOR HOME ABX, DENIES ANY DISTESS , WILL ENDORSE TO BILLING SPEC FOR CONTINUITY OF CARE
--- NOTE | 2023-01-07 19:30 | NUR ---
MS RN OPENING NOTE RECEIVED PATIENT IN BED, ALERT/ORIENTED X 4, VERBALLY RESPONSIVE. ON O2 AT 2L/MIN VIA N/C AND TOLERATED WELL. NO PAIN OR DISCOMFORT NOTED AT THIS TIME. PT HAS RIGHT UPPER CHEST HD CATH DRESSING C/D/I. IV ACCESS ON LEFT AC #20G AND RAC #20G, IV INTACT AND PATENT. ALL SAFETY MEASURES IN PLACE. BED IN LOWEST AND LOCKED POSITION. CALL LIGHT AND TABLE WITHIN REACH. SIDE RAILS ARE UP X2. BED ALARM ON, WILL CONTINUE TO MONITOR THROUGHOUT THE SHIFT.
[2023-01-07 20:00] VITALS: BP 135/59; TEMP 98.6
[2023-01-07] MEDS: *INSULIN REGULAR(HUMULIN R)HUM 100 UNIT/ML VIAL SQ PRN (21:09)
--- NOTE | 2023-01-07 21:09 | NUR ---
RN NOTE MIDLINE ACCESS OBTAINED ON LFA #18G BY JANICE BOATENG AT BEDSIDE. PT TOLERATED WELL.
[2023-01-08 04:00] VITALS: BP 151/67; TEMP 98.3
--- NOTE | 2023-01-08 06:35 | NUR ---
MS RN CLOSING NOTE PATIENT REMAINS IN BED ASLEEP BUT EASILY AROUSABLE TO TOUCH AND VOICE, ALERT/ORIENTED X 4, VERBALLY RESPONSIVE. ON O2 AT 2L/MIN VIA N/C AND TOLERATED WELL. NO PAIN OR DISCOMFORT NOTED AT THIS TIME. PT HAS RIGHT UPPER CHEST HD CATH DRESSING C/D/I. IV ACCESS ON RAC #20G AND LFA ML #18G, IV INTACT AND PATENT. ALL SAFETY MEASURES IN PLACE. BED IN LOWEST AND LOCKED POSITION. CALL LIGHT AND TABLE WITHIN REACH. SIDE RAILS ARE UP X2. BED ALARM ON, ALL DUE MEDS GIVEN, KEPT DRY AND CLEAN, WILL ENDORSE TO AM SHIFT NURSE FOR CONTINUITY OF CARE.
[2023-01-08 06:59] LABS: BASOPHILS % (AUTO) 0.6 % (0.0-2.0); HEMATOCRIT 33 % (33-45); HEMOGLOBIN 10.6 g/dL (11.5-14.8); LYMPHOCYTES # (AUTO) 1.7 K/uL (0.8-4.8); LYMPHOCYTES % (AUTO) 25.9 % (20.0-44.0); MEAN CORPUSCULAR HGB CONC 33 g/dl (31.0-36.0); MEAN CORPUSCULAR VOLUME 97 fL (82-100); MONOCYTES # (AUTO) 0.8 K/uL (0.1-1.30); MONOCYTES % (AUTO) 12.4 % (2.0-12.0); NEUTROPHILS # (AUTO) 3.8 K/uL (1.8-8.9); NEUTROPHILS % (AUTO) 58.1 % (43.0-81.0); PLATELET COUNT (AUTO) 173 K/uL (150-450); RED BLOOD CELL COUNT(AUTO) 3.38 MIL/uL (4.0-5.2); WHITE BLOOD COUNT (AUTO) 6.5 K/uL (4.3-11.0)
--- NOTE | 2023-01-08 07:10 | NUR ---
MS RN OPEN NOTE PATIENT IS IN BED ALERT/ORIENTED X 4, VERBALLY RESPONSIVE. ON O2 AT 2L/MIN VIA N/C AND TOLERATED WELL. NO PAIN OR DISCOMFORT NOTED AT THIS TIME. PT HAS RIGHT UPPER CHEST HD CATH DRESSING C/D/I. IV ACCESS ON LFA ML #18G, IV INTACT AND PATENT. ALL SAFETY MEASURES IN PLACE. BED IN LOWEST AND LOCKED POSITION. CALL LIGHT AND TABLE WITHIN REACH. SIDE RAILS ARE UP X2. BED ALARM ON, WILL CONTINUE TO MONITOR
[2023-01-08 07:19] LABS: CREATININE 5.5 mg/dL (0.6-1.3); POTASSIUM 4.4 mmol/L (3.5-5.1)
[2023-01-08] MEDS: BLOOD SUGAR DIAGNOSTIC 1 EACH STRIP VI SCH (07:22)
[2023-01-08] MEDS: *INSULIN REGULAR(HUMULIN R)HUM 100 UNIT/ML VIAL SQ PRN (07:24)
[2023-01-08 07:25] LABS: ALBUMIN 2.5 g/dL (3.4-5.0); BILIRUBIN,TOTAL 0.3 mg/dL (0.2-1.0); TOTAL PROTEIN, SERUM 7.6 g/dL (6.4-8.2)
[2023-01-08] MEDS: ASPIRIN EC 81 MG TABLET.DR PO SCH (08:12)
[2023-01-08] MEDS: ATORVASTATIN 40 MG TABLET PO SCH (08:12)
[2023-01-08] MEDS: NIFEdipine XL (30MG) 30 MG TAB PO SCH (08:12)
[2023-01-08] MEDS: METOPROLOL SUCCINATE 50 MG TAB.SR.24H PO SCH (08:13)
[2023-01-08] MEDS: VIT B CMPLX 3/FA/VIT C/BIOTIN 1 TAB TABLET PO SCH (08:13)
[2023-01-08] MEDS: CEFTRIAXONE 2 G in IV D5W 100 ML IV SCH (11:11)
[2023-01-08 12:00] VITALS: BP 135/86; TEMP 98.7
--- NOTE | 2023-01-08 12:20 | NUR ---
PATIENT EXITED THE HOSPITAL VIA PRIVATE CAR ACCOMPANIED BY SON, ALL DISCHARGE PAPER WORKS AND PERSONAL BELONGINGS RELEASED TO THE PATIENT, MIDLINE KEPT IN PLACED.
--- NOTE | 2023-01-08 12:25 | NUR ---
RN DOSCHARGE NOTE PATIENT IS AT STABLE HEALTH CONDITION , ORDER RECEIVED TO DISCHARGE PATIENT HOME WITH MID LINE AND HOME CARE TO FALLOW UP AND CONTINUE TO PERFORM ROCEPHINE INFUSION DAILY . INSTRUCTIONS PROVIDED TO THE PATIENT AND PCG .PATIENT AND PCG VERBALIZED UNDERSTANDING.
== END 2023-01-08 14:49 | disposition home health service (06) | DRG 720 ==
LOC: ER 11:28 → TELE1 14:10 → MEDSG1 01-05 08:49
PROVIDERS: ADMIT Internal Medicine; ATTEND Internal Medicine
PROC: 5A1D70Z Performance of Urinary Filtration, Intermittent, Less than 6 Hours Per Day (ICD-10-PCS; principal; 2023-01-02)
PROC: 05HA33Z Insertion of Infusion Device into Left Brachial Vein, Percutaneous Approach (ICD-10-PCS; 2023-01-07)
DX: A41.89 Other specified sepsis (principal); G93.40 Encephalopathy, unspecified; E87.20 Acidosis, unspecified; I21.A1 Myocardial infarction type 2; I12.0 Hypertensive chronic kidney disease with stage 5 chronic kidney disease or end stage renal disease; I47.1 Supraventricular tachycardia; E87.1 Hypo-osmolality and hyponatremia; E88.09 Other disorders of plasma-protein metabolism, not elsewhere classified; N18.6 End stage renal disease; E11.22 Type 2 diabetes mellitus with diabetic chronic kidney disease; Z20.822 Contact with and (suspected) exposure to COVID-19; Z99.2 Dependence on renal dialysis; E78.5 Hyperlipidemia, unspecified; R65.20 Severe sepsis without septic shock; N39.0 Urinary tract infection, site not specified; E87.6 Hypokalemia; Z79.4 Long term (current) use of insulin; Z79.82 Long term (current) use of aspirin; Z79.899 Other long term (current) drug therapy; M89.8X9 Other specified disorders of bone, unspecified site; I48.92 Unspecified atrial flutter; G51.39 Clonic hemifacial spasm, unspecified; I08.0 Rheumatic disorders of both mitral and aortic valves; B96.1 Klebsiella pneumoniae [K. pneumoniae] as the cause of diseases classified elsewhere; D64.9 Anemia, unspecified; J98.11 Atelectasis
CPT/HCPCS: 36415; 70450-TC; 71045-TC; 71250-TC; 75574; 80048-TC; 80053-TC; 80061-TC; 80076-TC; 80202-TC; 82330; 82962-TC; 83605-TC; 83735-TC; 84100-TC; 84439-TC; 84443-TC; 84484-TC; 85025-TC; 85610-TC; 85730-TC; 86706; 87040-TC; 87340; 90935-TC; 93307-TC; 97116-TC; 97530-TC; A4216; A4223; C9803; G0378; J0692; J0696; J1644; J1815; J2060; J2185; J2270; J2405; J3370; J7030; J7040; J7050; J7060; P9047; Q9967

== ENCOUNTER 2024-04-09 08:59 | Inpatient (IN) | payer OTHER ==
[~2024-04-09] VITALS: Ht 157.5 cm; Wt 61.7 kg
[~2024-04-09 08:59] MED LIST: ASPI-1420 PO; ATOR40TA PO; CEFT2VIA14 IV; CHOL100043 PO; INSU100V7 SQ; METO50TA7 PO; NIFE-35 PO; TRAZ-257 PO; VIT1TABL46 PO
[2024-04-09] MEDS ORDERED: ONDANSETRON HCL/PF 4 MG/2 ML VIAL ONE (09:28)
[2024-04-09] MEDS: ONDANSETRON HCL/PF 4 MG/2 ML VIAL IVP ONE (09:30)
[2024-04-09 09:59] LABS: BASOPHILS % (AUTO) 0.6 % (0.0-2.0); EOSINOPHILS # (AUTO) 0.1 K/uL (0.0-0.7); EOSINOPHILS % (AUTO) 2.2 % (0.0-6.0); HEMATOCRIT 40 % (33-45); HEMOGLOBIN 13.2 g/dL (11.5-14.8); LYMPHOCYTES # (AUTO) 1.8 K/uL (0.8-4.8); LYMPHOCYTES % (AUTO) 32.6 % (20.0-44.0); MEAN CORPUSCULAR HEMOGLOBIN 34 PG (26.0-33.0); MEAN CORPUSCULAR HGB CONC 33 g/dl (31.0-36.0); MEAN CORPUSCULAR VOLUME 103 fL (82-100); MONOCYTES # (AUTO) 0.3 K/uL (0.1-1.30); MONOCYTES % (AUTO) 4.9 % (2.0-12.0); NEUTROPHILS # (AUTO) 3.3 K/uL (1.8-8.9); NEUTROPHILS % (AUTO) 59.7 % (43.0-81.0); PLATELET COUNT (AUTO) 184 K/uL (150-450); RED BLOOD CELL COUNT(AUTO) 3.87 MIL/uL (4.0-5.2); RED CELL DISTRIBUTION WIDTH 12.9 % (11.5-15.0); WHITE BLOOD COUNT (AUTO) 5.6 K/uL (4.3-11.0)
[2024-04-09 10:22] LABS: ALANINE AMINOTRANSFERASE 9 U/L (12-78); ALBUMIN 3.6 g/dL (3.4-5.0); ALKALINE PHOSPHATASE 73 U/L (46-116); ASPARTATE AMINOTRANSFERASE 19 U/L (15-37); BILIRUBIN,DIRECT 0.2 mg/dL (0.0-0.2); BILIRUBIN,TOTAL 0.4 mg/dL (0.2-1.0); CALCIUM, SERUM 8.8 mg/dL (8.5-10.1); CARBON DIOXIDE 26 mmol/L (21-32); CHLORIDE 102 mmol/L (98-107); CREATININE 3.4 mg/dL (0.6-1.3); GLUCOSE 131 mg/dL (74-106); LIPASE 76 U/L (16-77); POTASSIUM 3.3 mmol/L (3.5-5.1); SODIUM SERUM 140 mmol/L (136-145); TOTAL PROTEIN, SERUM 8.1 g/dL (6.4-8.2); UREA NITROGEN, BLOOD 13 mg/dL (7-18)
[2024-04-09] MEDS ORDERED: ASPIRIN EC 81 MG TABLET.DR PO ONE (12:58)
[2024-04-09] MEDS: ASPIRIN 81 MG TAB.CHEW PO ONE (13:09)
[2024-04-09 14:00] VITALS: O2SAT 99
[2024-04-09] MEDS ORDERED: ZOLPIDEM TARTRATE 5 MG TABLET PO PRN (14:00)
[2024-04-09] MEDS ORDERED: Z GUARD REMEDY 4 OZ OINT TP PRN (14:00)
[2024-04-09] MEDS ORDERED: MAG HYDROX/AL HYDROX/SIMETH 30 ML UDC PO PRN (14:00)
[2024-04-09] MEDS ORDERED: HYDROCODONE/APAP 5/325MG TABLET PO PRN (14:00)
[2024-04-09] MEDS ORDERED: ONDANSETRON HCL/PF 4 MG/2 ML VIAL IVP PRN (14:00)
[2024-04-09] MEDS ORDERED: MAGNESIUM HYDROXIDE 30 ML UDC PO PRN (14:00)
[2024-04-09] MEDS ORDERED: SERT100T12 PO (14:04)
[2024-04-09] MEDS: ASPIRIN EC 81 MG TABLET.DR PO SCH (15:30)
[2024-04-09] MEDS: ATORVASTATIN 40 MG TABLET PO SCH (15:30)
[2024-04-09 16:00] VITALS: BP 131/68; TEMP 98.1; O2SAT 100
[2024-04-09] MEDS ORDERED: POTASSIUM CHLORIDE 20 MEQ TAB.PRT.SR PO ONE (16:00)
[2024-04-09] MEDS ORDERED: DEXTROSE 50%-WATER 50 ML DISP.SYRIN IV PRN (16:30)
[2024-04-09] MEDS: BLOOD SUGAR DIAGNOSTIC 1 EACH STRIP IN SCH (16:37)
[2024-04-09] MEDS: IV NS 0.9% 1,000 ML IV PRN (17:24)
[2024-04-09] MEDS: ACETAMINOPHEN 325 MG TABLET PO PRN (19:36)
[2024-04-09 20:16] VITALS: BP 137/64; TEMP 97.9; O2SAT 100
[2024-04-09] MEDS: INSULIN REGULAR, HUMAN 100 UNIT/ML 3 ML VIAL SQ PRN (22:02)
[2024-04-10 00:01] VITALS: BP 132/61; TEMP 97.7; O2SAT 100
[2024-04-10 04:01] VITALS: BP 135/65; TEMP 97.7; O2SAT 100
[2024-04-10 06:04] LABS: BASOPHILS % (AUTO) 0.2 % (0.0-2.0); EOSINOPHILS # (AUTO) 0.1 K/uL (0.0-0.7); EOSINOPHILS % (AUTO) 0.7 % (0.0-6.0); HEMATOCRIT 39 % (33-45); HEMOGLOBIN 12.9 g/dL (11.5-14.8); LYMPHOCYTES # (AUTO) 1.1 K/uL (0.8-4.8); LYMPHOCYTES % (AUTO) 12.7 % (20.0-44.0); MEAN CORPUSCULAR HEMOGLOBIN 34 PG (26.0-33.0); MEAN CORPUSCULAR HGB CONC 33 g/dl (31.0-36.0); MEAN CORPUSCULAR VOLUME 103 fL (82-100); MONOCYTES # (AUTO) 0.5 K/uL (0.1-1.30); MONOCYTES % (AUTO) 5.9 % (2.0-12.0); NEUTROPHILS # (AUTO) 7.2 K/uL (1.8-8.9); NEUTROPHILS % (AUTO) 80.5 % (43.0-81.0); PLATELET COUNT (AUTO) 148 K/uL (150-450); RED CELL DISTRIBUTION WIDTH 12.9 % (11.5-15.0)
[2024-04-10] MEDS ORDERED: TRAZODONE 50 MG TABLET PO PRN (07:00)
[2024-04-10 07:06] LABS: CALCIUM, SERUM 8.2 mg/dL (8.5-10.1); PHOSPHORUS 3.9 mg/dL (2.5-4.9); POTASSIUM 3.8 mmol/L (3.5-5.1)
[2024-04-10 08:00] VITALS: BP 127/79; TEMP 98.1; O2SAT 100
[2024-04-10] MEDS: PANTOPRAZOLE 40 MG TABLET.DR PO SCH (08:02)
[2024-04-10] MEDS: SERTRALINE HCL 50 MG TABLET PO SCH (08:27)
[2024-04-10 08:28] VITALS: BP 127/63
[2024-04-10] MEDS: NIFEdipine XL (30MG) 30 MG TAB PO SCH (08:28)
[2024-04-10 10:13] LABS: CHOLESTEROL 132 mg/dL (<200); HDL CHOLESTEROL 70 mg/dL (40-60); LDL 53 mg/dL (0-99); TRIGLYCERIDES 51 mg/dL (30-150)
== END 2024-04-10 17:05 | disposition home or self-care (01) | DRG 249 ==
LOC: ER 09:07 → TELE 14:23
DX: A05.9 Bacterial foodborne intoxication, unspecified (principal); I12.0 Hypertensive chronic kidney disease with stage 5 chronic kidney disease or end stage renal disease; E11.22 Type 2 diabetes mellitus with diabetic chronic kidney disease; N18.6 End stage renal disease; D63.1 Anemia in chronic kidney disease; D75.89 Other specified diseases of blood and blood-forming organs; R79.89 Other specified abnormal findings of blood chemistry; E78.5 Hyperlipidemia, unspecified; Z99.2 Dependence on renal dialysis; Z79.4 Long term (current) use of insulin; Z79.899 Other long term (current) drug therapy; Z79.82 Long term (current) use of aspirin; Z53.20 Procedure and treatment not carried out because of patient's decision for unspecified reasons; I25.2 Old myocardial infarction; Z95.5 Presence of coronary angioplasty implant and graft; I25.10 Atherosclerotic heart disease of native coronary artery without angina pectoris
CPT/HCPCS: 36415; 71045-TC; 80048-TC; 80061-TC; 80076-TC; 82962-TC; 83690-TC; 83735-TC; 84100-TC; 84484-TC; 85025-TC; 90935-TC; 93307-TC; A4223; G0378; J1815; J2405; J7030

== ENCOUNTER 2025-03-12 07:00 | Inpatient (IN) | payer MEDICARE, MEDICAID ==
[~2025-03-12] VITALS: Ht 157.5 cm; Wt 70.0 kg
[~2025-03-12 07:00] MED LIST changes: -CEFT2VIA14 IV; -CHOL100043 PO; -INSU100V7 SQ; -METO50TA7 PO; +SERT100T12 PO; -VIT1TABL46 PO
[2025-03-12] MEDS ORDERED: MORPHINE SULFATE INJ 4 MG/ML DISP.SYRIN ONE (07:31)
[2025-03-12] MEDS: MORPHINE SULFATE INJ 2 MG/ML DISP.SYRIN IV ONE (07:37)
[2025-03-12 07:50] LABS: CALCIUM, SERUM 9.2 mg/dL (8.5-10.1); CREATININE 5.5 mg/dL (0.6-1.3); SODIUM SERUM 132 mmol/L (136-145); UREA NITROGEN, BLOOD 27 mg/dL (7-18)
[2025-03-12 07:56] LABS: PLATELET COUNT (AUTO) 140 K/uL (150-450); RED BLOOD CELL COUNT(AUTO) 4.13 MIL/uL (4.0-5.2); RED CELL DISTRIBUTION WIDTH 14.1 % (11.5-15.0); WHITE BLOOD COUNT (AUTO) 11.1 K/uL (4.3-11.0)
[2025-03-12] MEDS ORDERED: ONDANSETRON HCL/PF 4 MG/2 ML VIAL ONE (08:22)
[2025-03-12] MEDS ORDERED: FOLI0.8T3 PO (09:09)
[2025-03-12] MEDS ORDERED: VADADUSTAT PO (09:09)
[2025-03-12] MEDS ORDERED: CHOL100062 PO (09:09)
[2025-03-12] MEDS ORDERED: NPH,100I SQ (09:09)
[2025-03-12] MEDS ORDERED: SEVE800T7 PO (09:09)
[2025-03-12] MEDS ORDERED: INSU100I30 SQ (09:09)
[2025-03-12] MEDS ORDERED: PANT40TA49 PO (09:09)
[2025-03-12] MEDS ORDERED: CYAN10006 IM (09:09)
[2025-03-12] MEDS: ONDANSETRON HCL/PF 4 MG/2 ML VIAL IVP ONE (09:20)
[2025-03-12] MEDS: IV NS 0.9% 500 ML BAG IV ONE (09:20)
[2025-03-12] MEDS ORDERED: ACETAMINOPHEN 325 MG TABLET PO PRN (10:00)
[2025-03-12] MEDS: METOPROLOL TARTRATE 25 MG TABLET PO SCH (10:00)
[2025-03-12] MEDS ORDERED: Z GUARD REMEDY 4 OZ OINT TP PRN (10:00)
[2025-03-12] MEDS ORDERED: MAG HYDROX/AL HYDROX/SIMETH 30 ML UDC PO PRN (10:00)
[2025-03-12] MEDS ORDERED: MAGNESIUM HYDROXIDE 30 ML UDC PO PRN (10:00)
[2025-03-12] MEDS: SEVELAMER CARBONATE 800 MG TABLET PO SCH (12:39)
[2025-03-12 20:00] VITALS: BP_SYST 117; BP_DIAS 53; BP_DIAS 58; TEMP 98.1; O2SAT 97
[2025-03-12] MEDS ORDERED: INSULIN GLARGINE, 100 UNIT/ML CARTRIDGE SQ PRN (22:00)
[2025-03-13] VITALS (8 sets, daily range): BP systolic 96–126; BP diastolic 50–98; TEMP 97.5–97.9; O2SAT 94–100
[2025-03-13] MEDS: BLOOD SUGAR DIAGNOSTIC 1 EACH STRIP IN SCH (08:01)
[2025-03-13 08:07] LABS: PLATELET COUNT (AUTO) 138 K/uL (150-450); RED BLOOD CELL COUNT(AUTO) 4.00 MIL/uL (4.0-5.2); RED CELL DISTRIBUTION WIDTH 13.6 % (11.5-15.0); WHITE BLOOD COUNT (AUTO) 5.7 K/uL (4.3-11.0)
[2025-03-13 08:13] LABS: CALCIUM, SERUM 9.0 mg/dL (8.5-10.1); PHOSPHORUS 5.0 mg/dL (2.5-4.9); SODIUM SERUM 135.0 mmol/L (136-145)
[2025-03-13] MEDS: FOLIC ACID 1 MG TABLET PO SCH (08:25)
[2025-03-13] MEDS: CHOLECALCIFEROL 1,000 UNIT TABLET (VIT D3) PO SCH (08:25)
[2025-03-13] MEDS: PANTOPRAZOLE 40 MG TABLET.DR PO SCH (08:26)
[2025-03-13] MEDS: ASPIRIN 81 MG TAB.CHEW PO SCH (08:26)
[2025-03-13] MEDS: SERTRALINE HCL 50 MG TABLET PO SCH (08:26)
[2025-03-13 08:27] LABS: UREA NITROGEN, BLOOD 49.0 mg/dL (7-18)
[2025-03-13 08:35] LABS: CREATININE 7.8 mg/dL (0.6-1.3)
[2025-03-13] MEDS: INSULIN NPH, HUMAN ISOPHANE 100 UNIT/ML CARTRIDGE SQ SCH (08:44)
[2025-03-13] MEDS: NIFEdipine XL (30MG) 30 MG TAB PO SCH (08:45)
[2025-03-13] MEDS ORDERED: DEXTROSE 50%-WATER 50 ML DISP.SYRIN IV PRN (12:30)
[2025-03-13] MEDS ORDERED: IOHEXOL-350 100 ML VIAL IV ONE (12:53)
[2025-03-13] MEDS ORDERED: IV NS 0.9% 250 ML IV ONE (12:54)
[2025-03-13] MEDS ORDERED: NITROGLYCERIN 0.4 MG/TAB BOTTLE ONE (13:19)
[2025-03-13] MEDS: NITROGLYCERIN 0.4 MG/TAB BOTTLE SL ONE (13:20)
[2025-03-13] MEDS: METOPROLOL TARTRATE INJ 5 MG/5 ML AMPUL IVP PRN (13:21)
[2025-03-13] MEDS: BLOOD SUGAR DIAGNOSTIC 1 EACH STRIP VI SCH (16:46)
[2025-03-13] MEDS: INSULIN REGULAR, HUMAN 100 UNIT/ML 3 ML VIAL SQ PRN (16:47)
[2025-03-13] MEDS: ONDANSETRON HCL/PF 4 MG/2 ML VIAL IVP PRN (17:25)
[2025-03-14] VITALS (7 sets, daily range): BP systolic 100–145; BP diastolic 46–72; TEMP 97.2–98.4; O2SAT 97–100
[2025-03-14] MEDS: *INSULIN REGULAR(HUMULIN R)HUM 100 UNIT/ML VIAL SQ PRN (21:27)
[2025-03-15] VITALS: BP 104/55; TEMP 98.1; O2SAT 100
[2025-03-15 04:00] VITALS: BP 103/50; TEMP 97.3; O2SAT 98
[2025-03-15 06:07] LABS: HEPATITIS B SURFACE AB (QUAL) Reactive (.)
[2025-03-15 08:56] VITALS: BP 122/48; TEMP 98.1; O2SAT 97
[2025-03-15 12:00] VITALS: BP 109/60; TEMP 97.9; O2SAT 98
[2025-03-15 16:34] VITALS: BP 102/52; TEMP 98; O2SAT 99
[2025-03-15 20:00] VITALS: BP 89/42; TEMP 98.6; O2SAT 100
[2025-03-16] VITALS: BP 88/45; TEMP 98.1; O2SAT 100
[2025-03-16 04:00] VITALS: BP 110/73; TEMP 98.4; O2SAT 100
[2025-03-16 06:42] LABS: PLATELET COUNT (AUTO) 152 K/uL (150-450); RED BLOOD CELL COUNT(AUTO) 4.06 MIL/uL (4.0-5.2); RED CELL DISTRIBUTION WIDTH 13.4 % (11.5-15.0); WHITE BLOOD COUNT (AUTO) 4.7 K/uL (4.3-11.0)
[2025-03-16 06:56] LABS: CALCIUM, SERUM 8.7 mg/dL (8.5-10.1); CREATININE 6.0 mg/dL (0.6-1.3); SODIUM SERUM 139.0 mmol/L (136-145); UREA NITROGEN, BLOOD 22.0 mg/dL (7-18)
[2025-03-16 08:00] VITALS: BP 123/50; TEMP 97.9; O2SAT 100
[2025-03-16 08:03] VITALS: BP 123/50; TEMP 97.9; O2SAT 100
[2025-03-16 20:00] VITALS: BP 166/76; TEMP 97.7; O2SAT 100
[2025-03-17] VITALS: BP 122/69; TEMP 97.6; O2SAT 97
[2025-03-17 04:00] VITALS: BP 120/56; TEMP 98.1; O2SAT 94
[2025-03-17 06:35] LABS: CALCIUM, SERUM 8.7 mg/dL (8.5-10.1); SODIUM SERUM 140.0 mmol/L (136-145); UREA NITROGEN, BLOOD 38.0 mg/dL (7-18)
[2025-03-17 06:39] LABS: PLATELET COUNT (AUTO) 165 K/uL (150-450); RED BLOOD CELL COUNT(AUTO) 3.83 MIL/uL (4.0-5.2); RED CELL DISTRIBUTION WIDTH 13.2 % (11.5-15.0); WHITE BLOOD COUNT (AUTO) 6.1 K/uL (4.3-11.0)
[2025-03-17 07:30] VITALS: BP 137/51; TEMP 97.9; O2SAT 100
[2025-03-17 07:31] LABS: CREATININE 8.7 mg/dL (0.6-1.3)
[2025-03-17 17:00] VITALS: BP 112/65
[2025-03-17] MEDS ORDERED: QUETIAPINE FUMARATE 25 MG TABLET PO SCH (22:00)
[2025-03-18] MEDS ORDERED: FLUOXETINE HCL 20 MG CAPSULE PO SCH (09:00)
== END 2025-03-17 18:10 | disposition home or self-care (01) | DRG 205 ==
LOC: ER 07:11 → TELE 10:50 → MED 03-16 15:47 → TELE 03-16 19:26 → MED 03-17 14:51
PROVIDERS: ADMIT Internal Medicine; ATTEND Internal Medicine
PROC: 5A1D70Z Performance of Urinary Filtration, Intermittent, Less than 6 Hours Per Day (ICD-10-PCS; principal; 2025-03-13)
PROC: 4A023N7 Measurement of Cardiac Sampling and Pressure, Left Heart, Percutaneous Approach (ICD-10-PCS; 2025-03-16)
PROC: B201YZZ Plain Radiography of Multiple Coronary Arteries using Other Contrast (ICD-10-PCS; 2025-03-16)
DX: M94.0 Chondrocostal junction syndrome [Tietze] (principal); I21.A1 Myocardial infarction type 2; N18.6 End stage renal disease; E87.1 Hypo-osmolality and hyponatremia; F33.3 Major depressive disorder, recurrent, severe with psychotic symptoms; I12.0 Hypertensive chronic kidney disease with stage 5 chronic kidney disease or end stage renal disease; Z99.2 Dependence on renal dialysis; Z95.5 Presence of coronary angioplasty implant and graft; E11.22 Type 2 diabetes mellitus with diabetic chronic kidney disease; Z79.4 Long term (current) use of insulin; Z79.82 Long term (current) use of aspirin; Z79.899 Other long term (current) drug therapy; E78.5 Hyperlipidemia, unspecified; M89.8X9 Other specified disorders of bone, unspecified site; E83.41 Hypermagnesemia; D64.9 Anemia, unspecified; I25.10 Atherosclerotic heart disease of native coronary artery without angina pectoris
CPT/HCPCS: 36415; 71045-TC; 75574; 80048-TC; 82962-TC; 83735-TC; 84100-TC; 84484-TC; 85025-TC; 86706; 87340; 90935-TC; 93307-TC; G0378; J1815; J2270; J2405; J7030; J7040; J7050; Q9967